=== PATIENT | male | born 1955 | race Caucasian/White ===

== ENCOUNTER → 2017-09-23 | Outpatient (CLI) | payer BC | LOC: LAB 10:19 | PROVIDERS: ATTEND Internal Medicine Pulmonary Disease | DX: R91.1 Solitary pulmonary nodule (principal) | CPT/HCPCS: 36415; 82565 ==

== ENCOUNTER 2018-07-13 02:16 | Day surgery (SDC) | payer BC ==
[~2018-07-13] VITALS: Ht 182.9 cm; Wt 82.6 kg
[2018-07-13 09:40] VITALS: BP 124/80
[2018-07-13] MEDS ORDERED: NORMOSOL R SOLN(*) 1000 ML BAG 1,000 ML IV PRN (10:00)
[2018-07-13] MEDS ORDERED: LIDOCAINE/SOD BICARB 8.4% SYR ID ONE (10:00)
[2018-07-13 11:52] VITALS: BP 95/57
[2018-07-13 12:15] VITALS: BP 111/81
[2018-07-13 12:25] VITALS: BP 111/70
[2018-07-13 12:29] VITALS: BP 115/85
[2018-07-13] MEDS ORDERED: PROPOFOL EMUL(*) 10MG/ML 20 ML 60 ML ONE (12:54)
== END 2018-07-13 12:39 | disposition home or self-care (01) ==
LOC: OR 02:16
PROVIDERS: ATTEND Family Medicine
DX: Z12.11 Encounter for screening for malignant neoplasm of colon (principal)
CPT/HCPCS: 00812; 45378; J2704